=== PATIENT | male | born 1975 | race Caucasian/White ===

== ENCOUNTER 2023-07-25 12:07 | Emergency (ER) | payer SELFPAY ==
[~2023-07-25] VITALS: Ht 170.1 cm; Wt 108.9 kg
[2023-07-25] MEDS ORDERED: Dexamethasone Sodium Phospha 20 MG/5 ML VIAL IM ONE (12:25)
[2023-07-25] MEDS ORDERED: Ketorolac Tromethamine 30 MG/ML VIAL IM ONE (12:25)
[2023-07-25] MEDS ORDERED: CYCLOBENZAPRINE5 M3 PO (14:53)
[2023-07-25] MEDS ORDERED: Cyclobenzaprine Hydrochlorid 10 MG TAB PO ONE (14:55)
== END 2023-07-25 15:04 | disposition home or self-care (01) ==
LOC: ED 12:07
DX: M62.838 Other muscle spasm (principal); M25.512 Pain in left shoulder; M54.2 Cervicalgia; Z88.8 Allergy status to other drugs, medicaments and biological substances

== ENCOUNTER 2024-01-03 09:11 | Emergency (ER) | payer SELFPAY ==
[~2024-01-03] VITALS: Ht 170.1 cm; Wt 117.9 kg
[~2024-01-03 09:11] MED LIST: CYCLOBENZAPRINE5 M3 PO
[2024-01-03] MEDS ORDERED: Acetaminophen/Hydrocodone 5 MG/325 MG TABLET PO ONE (11:20)
[2024-01-03] MEDS ORDERED: Tdap Vaccine 0.5 ML SYR (Adult Vaccine) IM ONE (11:20)
== END 2024-01-03 13:15 | disposition home or self-care (01) ==
LOC: ED 09:11
DX: S70.02XA Contusion of left hip, initial encounter (principal); S80.812A Abrasion, left lower leg, initial encounter; I10 Essential (primary) hypertension; Z88.8 Allergy status to other drugs, medicaments and biological substances; W17.89XA Other fall from one level to another, initial encounter; Y93.89 Activity, other specified; Y92.009 Unspecified place in unspecified non-institutional (private) residence as the place of occurrence of the external cause; Y99.8 Other external cause status